=== PATIENT | male | born 1965 | race American Indian/Alaskan Native ===

== ENCOUNTER 2019-09-23 02:17 | Emergency (ER) | payer MEDICARE ==
[2019-09-23] MEDS ORDERED: METOPROLOL TARTRATE 5 MG/5 ML INJ IV ONE (02:47)
--- NOTE | 2019-09-23 02:55 | Emergency Department Report ---
ED General Adult HPI - General Stated complaint: LOW O2 SAT/ELEVATED HEART RATE Time Seen by Provider: 09/23/19 02:34 Source: patient, EMS - History of Present Illness Initial comments: 53-year-old male presents to the ED from [facility] for evaluation of tachycardia and hypoxia. Patient presented to [facility] for auditory and visual hallucinations. Patient was at a detox facility for opioids. He left that detox facility and was evaluated at [facility] for his hallucinations and accepted at [place]. Pt reports that he does have a hx of tachycardia and states was prescribed metoprolol, which he has not been taking. Pt denies drug use. Denies any pain. Pt is tachycardic currently, however, he is not hypoxic. Room air O2 sats are normal. He is is no respiratory distress. Patient reports history of hypertension and diabetes. He denies any previous psychiatric history. -: unknown Quality: other (painless) Worsens with: other (medication noncompliance) Associated Symptoms: denies: chest pain, shortness of breath - Related Data Previous Rx's Medication Instructions Recorded Last Taken Type Metoprolol [Lopressor TAB] 25 mg PO BID #60 tablet 09/23/19 Unknown Rx ED Review of Systems ROS: Stated complaint: LOW O2 SAT/ELEVATED HEART RATE Other details as noted in HPI Comment: All other systems reviewed and negative Respiratory: denies: shortness of breath Cardiovascular: denies: chest pain Gastrointestinal: denies: vomiting ED Past Medical Hx - Medications Home Medications: Home Medications Medication Instructions Recorded Confirmed Last Taken Type Metoprolol [Lopressor TAB] 25 mg PO BID #60 tablet 09/23/19 Unknown Rx ED Physical Exam - General General appearance: alert - Head Head exam: Present: atraumatic, normocephalic - Eye Eye exam: Present: normal appearance - ENT ENT exam: Present: mucous membranes moist - Neck Neck exam: Present: normal inspection - Respiratory Respiratory exam: Present: normal lung sounds bilaterally. Absent: respiratory distress - Cardiovascular Cardiovascular Exam: Present: normal rhythm, tachycardia - GI/Abdominal GI/Abdominal exam: Present: soft. Absent: distended, tenderness - Extremities Exam Extremities exam: Present: normal inspection - Neurological Exam Neurological exam: Present: alert. Absent: oriented X3, motor sensory deficit (moves all extremities, sensation intact) - Psychiatric Psychiatric exam: Present: agitated, other (appears to be responding to internal stimuli and grabbing at things in front of him that are not there) - Skin Skin exam: Present: warm, dry, intact, normal color. Absent: rash ED Course Vital Signs 09/23/19 09/23/19 09/23/19 02:39 02:46 03:13 Temperature Pulse Rate 130 H 127 H 130 H Respiratory 20 20 33 H Rate Blood Pressure 134/86 143/78 121/65 O2 Sat by Pulse 100 98 100 Oximetry 09/23/19 09/23/19 09/23/19 03:15 03:21 03:31 Temperature 98.1 F Pulse Rate 127 H Respiratory 27 H 18 Rate Blood Pressure 123/70 O2 Sat by Pulse 100 Oximetry 09/23/19 09/23/19 09/23/19 03:45 04:00 04:15 Temperature Pulse Rate 104 H 103 H 104 H Respiratory 22 28 H 17 Rate Blood Pressure 140/91 146/87 146/87 O2 Sat by Pulse 98 100 100 Oximetry 09/23/19 09/23/19 09/23/19 04:31 04:45 05:01 Temperature Pulse Rate 115 H 110 H 112 H Respiratory 22 24 18 Rate Blood Pressure 139/90 139/90 115/87 O2 Sat by Pulse Oximetry 09/23/19 05:15 Temperature Pulse Rate 114 H Respiratory 17 Rate Blood Pressure 121/87 O2 Sat by Pulse Oximetry ED Medical Decision Making - Lab Data Result diagrams: 09/23/19 02:59 09/23/19 02:59 - EKG Data -: EKG Interpreted by Ri EKG shows normal: sinus rhythm, ST-T waves Rate: tachycardia - EKG Data Interpretation: no acute changes - Medical Decision Making - Patient sent from [facility] for tachycardia and hypoxia - Patient is not hypoxic. Lungs are clear, he is in no distress - Pt reports he takes metoprolol for his tachycardia but has not taken it lately. - Reports he has been told that he has chronic kidney disease. Labs reflect this. There is no hyperkalemia present. - Metoprolol given, HR improved. Remainder of vitals are normal - Patient is in no distress. He is slightly agitated at times, but is able to be redirected. - Will d/c back to [facility] w/ rx for metoprolol. - Pt will need outpt follow-up - Differential Diagnosis tachycardia, ACS Critical care attestation.: If time is entered above; I have spent that time in minutes in the direct care of this critically ill patient, excluding procedure time. ED Disposition Clinical Impression: Sinus tachycardia Disposition: - TO HOME OR SELFCARE Is pt being admited?: No Condition: Stable Prescriptions: Metoprolol [Lopressor TAB] 25 mg PO BID #60 tablet Referrals: PRIMARY CARE, [Primary Care Provider] - 3-5 Days Time of Disposition: 05:13
[2019-09-23 03:39] LABS: Basophils # (Auto) 0.1 K/mm3 (0.0-0.1); Basophils % (Auto) 0.8 % (0.0-1.8); Eosinophils # (Auto) 0.1 K/mm3 (0.0-0.4); Eosinophils % (Auto) 1.9 % (0.0-4.3); Lymphocytes # (Auto) 2.9 K/mm3 (1.2-5.4); Lymphocytes % (Auto) 38.5 % (13.4-35.0); Mean Corpuscular HGB Conc 33 % (32-34); Mean Corpuscular Volume 87 fl (84-94); Monocytes # (Auto) 0.7 K/mm3 (0.0-0.8); Monocytes % (Auto) 8.8 % (0.0-7.3); Platelet Count 245 K/mm3 (140-440); Red Cell Distribution Width 14.4 % (13.2-15.2)
[2019-09-23 03:50] LABS: Calcium 8.4 mg/dL (8.4-10.2)
[2019-09-23] MEDS ORDERED: METOPROLOL TARTRATE 50 MG TAB PO ONE (04:03)
[2019-09-23 05:25] VITALS: BP 121/87
== END 2019-09-23 06:10 | disposition home or self-care (01) ==
LOC: ED 02:17 → EEVIPCON 02:17 → ED 06:10
DX: R00.0 Tachycardia, unspecified (principal); R09.02 Hypoxemia; R44.0 Auditory hallucinations
CPT/HCPCS: 36415; 80048; 80320; 84484; 85025; 93005; 93010; 96374; G0480